=== PATIENT | male | born 1990 | race African-American/Black ===

== ENCOUNTER 2017-08-03 20:55 | Emergency (ER) | payer SELFPAY ==
[~2017-08-03] VITALS: Ht 182.9 cm; Wt 87.0 kg
[~2017-08-03 20:55] MED LIST: IBUPROFEN 600MG TABLET ONE
[2017-08-03] MEDS ORDERED: IBUPROFEN 600MG TABLET PO ONE (21:15)
[2017-08-04] VITALS: BP 129/80
== END 2017-08-04 01:10 | disposition home or self-care (01) ==
LOC: ER 21:40
DX: S62.394A Other fracture of fourth metacarpal bone, right hand, initial encounter for closed fracture (principal); S62.391A Other fracture of second metacarpal bone, left hand, initial encounter for closed fracture; Y04.0XXA Assault by unarmed brawl or fight, initial encounter; Y93.89 Activity, other specified; Y92.89 Other specified places as the place of occurrence of the external cause
CPT/HCPCS: 29125; 73130; 99284

== ENCOUNTER 2017-09-17 14:01 | Emergency (ER) | payer SELFPAY ==
[~2017-09-17] VITALS: Ht 182.9 cm; Wt 84.0 kg
[2017-09-17] MEDS ORDERED: KETOROLAC 60MG/2ML VIAL IM ONE (14:30)
[2017-09-17 16:16] VITALS: BP 131/86
== END 2017-09-17 16:22 | disposition home or self-care (01) ==
LOC: ER 16:04
DX: S39.012A Strain of muscle, fascia and tendon of lower back, initial encounter (principal); M54.2 Cervicalgia; V89.2XXA Person injured in unspecified motor-vehicle accident, traffic, initial encounter; Y93.89 Activity, other specified; Y99.8 Other external cause status; Y92.410 Unspecified street and highway as the place of occurrence of the external cause
CPT/HCPCS: 96372; 99283; J1885

== ENCOUNTER 2023-07-12 20:57 | Emergency (ER) | payer MEDICAID ==
[~2023-07-12] VITALS: Ht 182.9 cm; Wt 90.0 kg
[2023-07-12 21:08] VITALS: O2SAT 97
[2023-07-12] MEDS ORDERED: TETRACAINE 0.5% OPHTH DROPS 4ML EACHEYE ONE (22:30)
[2023-07-12] MEDS ORDERED: FLUORESCEIN SODIUM 1MG/STRIP LEFTEYE ONE (22:30)
[2023-07-12] MEDS ORDERED: TRIMO RIGHTEYE (23:45)
[2023-07-13 00:04] VITALS: BP 157/100; PULSE 69; RESP 17; TEMP 98.2
== END 2023-07-13 00:06 | disposition home or self-care (01) ==
LOC: ER 21:23
DX: H10.9 Unspecified conjunctivitis (principal)
CPT/HCPCS: 99283